=== PATIENT | female | born 1965 | race Caucasian/White ===

== ENCOUNTER 2020-04-26 18:04 | Emergency (ER) | payer OTHER, SELFPAY ==
--- NOTE | 2020-04-26 18:13 | ED.GENADULT ---
HPI - General Adult General Chief complaint: Eye Problems Stated complaint: bleach in eye Time Seen by Provider: 04/26/20 18:21 Source: patient Mode of arrival: ambulatory Limitations: no limitations History of Present Illness HPI narrative: 54-year-old female patient presents to the [facility] with complaints of left eye irritation after bleach was splashed into her eye while cleaning her pool approximately 30 minutes prior to arrival. Patient states that she did try to irrigate it at home as well as put a cold rag over it. Patient states that she does have pain to the eye, blurred vision, sensitivity to light and feels like is that she is having trouble keeping her eye open. Related Data Home Medications Medication Instructions Recorded Confirmed levothyroxine [Euthyrox] 125 mcg PO DAILY 04/26/20 04/26/20 Allergies Allergy/AdvReac Type Severity Reaction Status Date / Time amoxicillin Allergy Intermediate HIVES Verified 04/26/20 18:12 Review of Systems Review of Systems: Narrative: CONSTITUTIONAL: Denies fever, chills, or sweats. EYES: Denies visual changes, redness, or discharge. Positive left eye irritation after chemical burn to the eye ENT: Denies rhinorrhea, congestion, sore throat, or otalgia. CARDIOVASCULAR: Denies chest pain, palpitations, or edema. RESPIRATORY: Denies cough or dyspnea. GASTROINTESTINAL: Denies abdominal pain, nausea, vomiting, or diarrhea. GENITOURINARY: Denies dysuria or hematuria. SKIN: Denies rash or itching. MUSCULOSKELETAL: Denies back pain, joint pain, or myalgia. NEUROLOGIC: Denies headache, numbness, or weakness. PSYCHIATRIC: Denies anxiety or depression. PMFSH Comments At the time of my signature I agree with nursing past medical history, surgical, social, and family history. There is no relevant family history pertinent to the presenting complaint. Exam Narrative: Exam Narrative: GENERAL: Well-appearing, well-nourished, and in no acute distress. HEAD: Normocephalic, atraumatic. EYES: PERRLA and EOM intact without limitation or complaint of pain, no periorbital soft tissue swelling ,no erythema, warmth or tenderness noted, no obvious deformity. No crusting or swelling. tearing noted to the left eye.positive photophobia. No nystagmus No FB or lesion on lid eversion. Corneas grossly clear, no obvious FB or hyphens/hypopyon. injection to sclera. Conjunctivitis noted to the left eye. Lids and lashes clear. pH was checked prior to irrigation and was 6.5. ENT: Nares clear, no rhinorrhea or epistaxis. Mucous membranes moist. NECK: Supple. No lymphadenopathy CHEST: Clear to auscultation. No respiratory distress. HEART: Regular rate and rhythm. No murmur heard. Normal peripheral pulses. ABDOMEN: Soft, nontender, nondistended, normal active bowel sounds. EXTREMITIES: Normal range of motion. No edema. SKIN: Warm, dry, no rash. NEURO: No focal deficits. Alert and oriented x3. Course Reevaluation(s) Reevaluation #1: Discussed with patient that we were able to get the pH up to 7.0 with irrigation. Discussed with her I am going to send her home with some more sterile water and I want her to continue to irrigate that left eye. Discussed with her that if her symptoms continue to worsen including worsening vision changes, increase in pain or any other concerning symptoms I would advise her to go to the ER right away. Discussed with her that if she is able to maintain the irrigation okay and her symptoms start to improve I still like her to follow-up with the eye doctor in the next day or 2. Patient verbalized understanding of this denies any other questions or concerns at this time. Date: 04/26/20 Time: 18:57 Vital Signs Vital signs: Vital Signs Temperature 37.4 C 04/26/20 18:20 Pulse Rate 69 04/26/20 18:20 Respiratory Rate 18 04/26/20 18:20 Blood Pressure 177/96 H 04/26/20 18:20 Pulse Oximetry 100 04/26/20 18:20 Temperature 37.4 C 04/26/20 18:20 Pulse Rate 69 04/26/20
[2020-04-26 18:20] VITALS: BP 177/96; PULSE 69; RESP 18; TEMP 37.4; O2SAT 100
== END 2020-04-26 19:00 | disposition home or self-care (01) ==
PROVIDERS: Emergency Provider Nurse Practitioner Family; PCP Internal Medicine
DX: T26.62XA Corrosion of cornea and conjunctival sac, left eye, initial encounter (principal); T54.91XA Toxic effect of unspecified corrosive substance, accidental (unintentional), initial encounter
CPT/HCPCS: 99202; G0463

== ENCOUNTER 2023-02-04 14:40 | Outpatient (CLI) | payer OTHER, SELFPAY ==
[2023-02-04 19:22] LABS: Basophils Absolute Auto 0.1 K/mm3 (0.0-0.1); Basophils Percent Auto 1.1 % (0.2-1.2); Eosinophils Absolute Auto 0.2 K/mm3 (0-0.3); Eosinophils Percent Auto 1.7 % (0-4.4); Hematocrit 45.5 % (37.0-47.0); Hemoglobin 14.7 g/dL (12.0-15.0); Immature Granulocyte Absolute 0.04 K/mm3 (0.00-0.031); Immature Granulocyte Percent A 0.4 % (0-0.5); Lymphocytes Percent Auto 22.1 % (18.3-44.2); Mean Corpuscular HGB Conc 32.3 g/dl (32-36); Mean Corpuscular Hemoglobin 34.4 pg (26-34); Mean Corpuscular Volume 106.6 fl (80-100); Mean Platelet Volume 9.9 fl (7.4-10.4); Monocytes Absolute Auto 0.6 K/mm3 (0.1-0.6); Monocytes Percent Auto 5.9 % (2.6-8.5); Neutrophils Absolute Auto 7.2 K/mm3 (1.3-6.7); Neutrophils Percent Auto 68.8 % (45.5-73.1); Platelet Count Result 377 k/mm3 (150-375); Red Blood Count 4.27 M/mm3 (4.2-5.4); Red Cell Distribution Width 13.3 % (11.5-14.5); White Blood Count 10.4 K/mm3 (4.5-10.0)
[2023-02-04 20:26] LABS: LDL Cholesterol Direct 94 mg/dL
[2023-02-04 20:37] LABS: Alanine Aminotransferase 22 U/L (6-35); Albumin Level 4.9 g/dL (3.5-5.1); Alkaline Phosphatase 70 U/L (38-126); Anion Gap 6 mmol/L (8-16); Aspartate Amino Transferase 34 U/L (14-36); Bilirubin,Total 0.8 mg/dL (0.2-1.3); Blood Urea Nitrogen 11 mg/dL (7-17); Calcium 9.8 mg/dL (8.4-10.2); Carbon Dioxide 31 mmol/L (22-30); Chloride 100 mmol/L (98-107); Cholesterol 260 mg/dL (0-200); Estimated Glomerular Filt Rate > 60; Glucose 101 mg/dL (65-110); Potassium 4.2 mmol/L (3.4-5.0); Sodium 137 mmol/L (137-145); Triglycerides 58 mg/dL (<150)
[2023-02-04 20:44] LABS: Thyroid Stimulating Hormone 0.258 uIU/mL (0.465-4.680)
[2023-02-04 21:35] LABS: HDL Direct 150 mg/dL
== END 2023-02-04 14:41 | disposition home or self-care (01) ==
LOC: ANHBWCLAB 14:40
PROVIDERS: PCP Family Medicine; Visit Provider Family Medicine
DX: Z00.00 Encounter for general adult medical examination without abnormal findings (principal); E03.9 Hypothyroidism, unspecified
CPT/HCPCS: 36415; 80053; 80061; 84443; 85025

== ENCOUNTER 2023-06-19 14:00 | Outpatient (CLI) | payer OTHER, SELFPAY ==
--- NOTE | ~2023-06-19 | DEXA_ITS ---
Bone Density Report Name: HARDEEP BERGER Age: 57 Sex: Female Ethnicity: White Date of : 1965 Indication: postmenopausal; screening for osteoporosis; height loss; Referring Provider: UNKNOWN, UNKNOWN Study: Bone densitometry was performed. Exam Date: June 19, 2023 Accession number: [id number] Bone Density: Region BMD T-score Z-score Classification AP Spine(L1-L4) 1.013 -0.3 0.9 Normal Femoral Neck (Left) 0.616 -2.1 -0.9 Osteopenia Total Hip (Left) 0.807 -1.1 -0.3 Osteopenia Femoral Neck (Right) 0.657 -1.7 -0.6 Osteopenia Total Hip (Right) 0.799 -1.2 -0.4 Osteopenia Femoral Neck Mean 0.636 -1.9 -0.7 Osteopenia Total Hip Mean 0.803 -1.1 -0.3 Osteopenia World Health Organization criteria for BMD impression classify patients as: Normal (T-score at or above -1.0), Osteopenia (T-score between -1.0 and -2.5), or Osteoporosis (T-score at or below -2.5). 10-year Fracture Risk(1): Major Osteoporotic Fracture 8.9% Hip Fracture 1.9% Reported Risk Factors: [place] (), Neck BMD=0.616, BMI=23.8, smoking (1) FRAX(R) Version 3.08. Fracture probability calculated for an untreated patient. Fracture probability may be lower if the patient has received treatment. Clinical Information Provided by Patient: Smokes Patient maximum height was 66 Menopause Age: 42 No regular weight bearing exercise Drinks caffeinated beverages Onset of menses at age 14 Number of children 1 Impression: The patient has low bone mass, based on the Left Femoral Neck T-score. The patient has risk factors, including: smoking. Discussion: BONE DENSITY IS LOW AT ONE OR MORE SKELETAL SITES. This patient's lowest T-score is low at one or more skeletal sites. It meets the World Health Organization's (WHO) criteria for ?low bone mass? (T-score between -1.0 and -2.5). The patient's 10-year risk of fracture as calculated by FRAX is less than the threshold where pharmacological therapy is recommended by the National Osteoporosis Foundation (NOF). However, all treatment decisions require clinical judgment and consideration of individual patient factors, including patient preferences, comorbidities, previous drug use, risk factors not captured in the FRAX model (e.g., frailty, falls, vitamin D deficiency, increased bone turnover, interval significant decline in bone density) and possible under or overestimation of fracture risk by FRAX. The patient should follow a healthful lifestyle (good nutrition with adequate calcium and vitamin D, and appropriate weight-bearing exercise). Follow-Up: Consider repeating this study in 2 to 3 years to reassess this patient's status, or sooner if there is some new clinical indication. Reported by: Dr. Mike Riddle on 06/19/2023 2:35:00 PM. Reviewed, dictated and finalized at location A.
--- NOTE | ~2023-06-19 | MM_ITS ---
EXAMINATION: MM screening solo BI w samantha HISTORY: Screening mammogram TECHNIQUE: Craniocaudal and mediolateral oblique 3-D tomosynthesis images were obtained and synthetic 2-D images were generated. CAD analysis was submitted and interpreted. COMPARISON: No prior mammogram is available for comparison at this institution. BREAST PARENCHYMAL COMPOSITION: The breasts are heterogeneously dense, which may obscure small masses . FINDINGS: RIGHT BREAST: Calcifications are present in the upper outer quadrant of the right breast. No suspicio us mass or architectural distortion are seen.. LEFT BREAST: There is a mass in the anterior third of the slightly upper inner breast. IMPRESSION: 1. Bilateral breast findings as above which may represent the patient's baseline however no compariso n is currently available. 2. Comparison with prior mammograms is necessary. BI-RADS Category 0: Incomplete: Needs comparison with prior mammograms. Reviewed, dictated and finalized at location A. IMPRESSION: 1. Bilateral breast findings as above which may represent the patient's baselin e however no comparison is currently available. 2. Comparison with prior mammograms is necessary. BI-RADS Category 0: Incomplete: Needs comparison with prior mammograms.
== END 2023-06-19 14:01 | disposition home or self-care (01) ==
LOC: CHSIMG 14:04
PROVIDERS: PCP Family Medicine
DX: Z12.31 Encounter for screening mammogram for malignant neoplasm of breast (principal); Z78.0 Asymptomatic menopausal state; M85.89 Other specified disorders of bone density and structure, multiple sites; R92.8 Other abnormal and inconclusive findings on diagnostic imaging of breast
CPT/HCPCS: 77063; 77067; 77080

== ENCOUNTER 2023-07-16 08:48 | Outpatient (CLI) | payer OTHER, SELFPAY ==
--- NOTE | ~2023-07-16 | MMUS_ITS ---
EXAMINATION: MM diagnostic solo BI w samantha, US breast BI complete HISTORY: Follow-up calcifications and left breast mass TECHNIQUE: Additional 3-D tomosynthesis images of the breasts were performed and synthetic 2-D images were generated. CAD analysis was submitted and interpreted. High resolution bilateral complete breas t ultrasound was performed. COMPARISON: Comparison to multiple prior studies sequentially, with oldest reviewed study dated 10/24. BREAST PARENCHYMAL COMPOSITION: The breasts are heterogeneously dense, which may obscure small masses FINDINGS: MAMMOGRAPHIC FINDINGS: Punctate scattered right breast calcifications are most likely benign, although slightly increased co mpared with prior studies. No suspicious masses or architectural distortion in the right breast. Ther e is a subareolar mass of the left breast. Left breast calcifications are stable. ULTRASOUND: Complete bilateral US of all 4 quadrants of the breasts and retroareolar region was reviewed. Right breast: Normal heterogeneous echotexture without focal solid or cystic mass. Left breast: There are multiple cysts of the left breast, largest near the nipple corresponding to th e mammographic abnormality being a cyst with internal septation measuring 1.8 cm maximum dimension, b enign. There are additional cysts of the right breast at 12:00, 3 cm from the nipple measuring 4 mm a nd 5:00, 5 cm from the nipple measuring 10 mm. IMPRESSION: 1. Probable benign right breast calcifications. Benign findings of the left breast. 2. Recommend 6 month follow-up diagnostic right mammogram BI-RADS category 3, probably benign findings. Reviewed, dictated and finalized at location L. IMPRESSION: 1. Probable benign right breast calcifications. Benign findings of the left manuel ast. 2. Recommend 6 month follow-up diagnostic right mammogram BI-RADS category 3, probably benign findings.
== END 2023-07-16 08:49 | disposition home or self-care (01) ==
PROVIDERS: PCP Family Medicine
DX: R92.8 Other abnormal and inconclusive findings on diagnostic imaging of breast (principal)
CPT/HCPCS: 76641; 77062; 77066; G0279

== ENCOUNTER 2023-08-11 14:36 | Outpatient (CLI) | payer OTHER, SELFPAY ==
[2023-08-11 19:15] LABS: Hematocrit 45.1 % (37.0-47.0); Hemoglobin 14.3 g/dL (12.0-15.0); Mean Corpuscular HGB Conc 31.7 g/dl (32-36); Mean Corpuscular Hemoglobin 34.2 pg (26-34); Mean Corpuscular Volume 107.9 fl (80-100); Mean Platelet Volume 10.4 fl (7.4-10.4); Platelet Count Result 342 k/mm3 (150-375); Red Blood Count 4.18 M/mm3 (4.2-5.4); Red Cell Distribution Width 12.9 % (11.5-14.5); White Blood Count 10.4 K/mm3 (4.5-10.0)
[2023-08-11 19:37] LABS: LDL Cholesterol Direct 87 mg/dL
[2023-08-11 19:45] LABS: Alanine Aminotransferase 18 U/L (6-35); Albumin Level 4.4 g/dL (3.5-5.1); Alkaline Phosphatase 65 U/L (38-126); Anion Gap 8 mmol/L (8-16); Aspartate Amino Transferase 45 U/L (14-36); Bilirubin,Total 0.7 mg/dL (0.2-1.3); Blood Urea Nitrogen 12 mg/dL (7-17); Calcium 9.3 mg/dL (8.4-10.2); Carbon Dioxide 28 mmol/L (22-30); Chloride 103 mmol/L (98-107); Cholesterol 245 mg/dL (0-200); Estimated Glomerular Filt Rate > 60; Glucose 95 mg/dL (65-110); Potassium 4.4 mmol/L (3.4-5.0); Sodium 139 mmol/L (137-145); Triglycerides 51 mg/dL (<150)
[2023-08-11 21:14] LABS: HDL Direct 135 mg/dL
== END 2023-08-11 14:37 | disposition home or self-care (01) ==
PROVIDERS: PCP Nurse Practitioner Adult Health; Visit Provider Nurse Practitioner Adult Health
DX: E03.9 Hypothyroidism, unspecified (principal); E78.00 Pure hypercholesterolemia, unspecified; Z13.9 Encounter for screening, unspecified
CPT/HCPCS: 36415; 80053; 80061; 84443; 85027

== ENCOUNTER 2024-02-09 14:02 | Outpatient (CLI) | payer OTHER, SELFPAY ==
[2024-02-09 18:16] LABS: Hematocrit 47.2 % (37.0-47.0); Hemoglobin 15.4 g/dL (12.0-15.0); Mean Corpuscular HGB Conc 32.6 g/dl (32-36); Mean Corpuscular Volume 104.2 fl (80-100); Mean Platelet Volume 10.4 fl (7.4-10.4); Platelet Count Result 371 k/mm3 (150-375); Red Blood Count 4.53 M/mm3 (4.2-5.4); Red Cell Distribution Width 12.6 % (11.5-14.5); White Blood Count 10.2 K/mm3 (4.5-10.0)
== END 2024-02-09 14:03 | disposition home or self-care (01) ==
LOC: ANHBWCLAB 14:04
PROVIDERS: PCP Nurse Practitioner Adult Health; Visit Provider Nurse Practitioner Adult Health
DX: Z13.9 Encounter for screening, unspecified (principal)
CPT/HCPCS: 36415; 80053; 80061; 84443; 85027

== ENCOUNTER 2024-02-10 07:33 | Emergency (ER) | payer OTHER, SELFPAY ==
[2024-02-10 07:36] VITALS: BP 175/92; PULSE 87; RESP 19; TEMP 36.2; O2SAT 100
--- NOTE | 2024-02-10 07:40 | ED.RECABL ---
HPI - Recheck/Abnormal Lab/Rx General Chief Complaint: Recheck/Abnormal Lab/Rx Stated Complaint: abnormal labs Time Seen by Provider: 02/10/24 07:39 Source: patient Mode of arrival: ambulatory Limitations: no limitations History of Present Illness HPI narrative: 58-year-old female, smoker alcohol use, hypothyroidism, Dyslipidemia went to her primary care physician yesterday for routine blood work. Her blood work revealed a potassium of 7.8 following which was directed to come to the ER. The patient is asymptomatic. She denies any chest pain or shortness of breath. No history of renal dysfunction. The patient takes estrogen progesterone and thyroid replacement. MD complaint: abnormal lab Symptoms since prior visit: no new symptoms Associated symptoms: none Related Data Home Medications Medication Instructions Recorded Confirmed Progesterone BYMOUTH 02/09/24 02/09/24 estrogen BYMOUTH 02/09/24 02/09/24 Allergies Allergy/AdvReac Type Severity Reaction Status Date / Time amoxicillin Allergy Intermediate HIVES Verified 02/09/24 13:40 Review of Systems Review of Systems: All systems reviewed & are unremarkable except as noted in HPI and below PMFSH Family History Family History Father Heart disease Hypertension Mother Disorder of thyroid Sibling Cerebrovascular accident Grandparent Colon polyp Social History Social History Smoking status: Current every day smoker Alcohol intake: current Drinks per week: 12 Alcohol use details: Wine Substance use: current Substance use type: does not use Lack of Transportation: No Lack of Food: Never True Current Housing: I Do Not Have Housing Concerned About Future Housing: No Difficulty Paying Gas/Electric Bills: No Difficulty Paying for Meds: No Currently Unemployed: No Education: Trade/Vocational Certificate Difficulty w/ Childcare or Family Care: No Living arrangements: alone Gender identity (if verbalized by the patient): Female Agree to blood products: Yes Exam Narrative: blood pressure is 175/92. Const: General: healthy appearing and no acute distress Orientation/consciousness: patient oriented x3 Limitations: no limitations HENMT: Head: normal to inspection Ears: external ears normal Face/Nose/Sinus: Normal external nose present Face and sinus: normal facial exam Mouth: Yes Normal oral and palatal mucosa present Throat: posterior oropharynx normal Eyes: Conjunctivae: conjunctivae normal Pupils: Equal, round and reactive pupils present EOM: EOMs intact bilaterally Direct Ophthalmoscopy: no photophobia Neck: Neck: normal visual inspection, no lymphadenopathy and no meningeal signs Chest: Chest palpation & inspection: normal inspection of the chest Resp: Effort & Inspection: normal respiratory effort Auscultation: clear to auscultation bilaterally Cardio: Rate: regular rate Rhythm: regular rhythm GI: GI Palp: Yes Soft to palpation : General: Yes no CVA tenderness Back/Spine/Pelvis: Back: no CVA tenderness Skin: General skin exam: normal color Rashes: no rashes Wounds: no wounds Neuro: General: patient oriented x3, moves all extremities, no meningeal signs, no focal motor deficits and CN's II-XI intact bilaterally Cranial nerves: Yes Nystagmus not present Speech: normal speech Extrem: General: normal to inspection, no clubbing, cyanosis or edema and no pedal edema Psych: Mental Status: mental status grossly normal Affect: normal affect Attitude: cooperative Course Course Emergency Course: Blood work revealed hyperkalemia. Patient has normal BUN / creatinine. Will repeat blood work. Patient is asymptomatic. Repeat blood work revealed a normal potassium and magnesium. Vital Signs Vital signs: Vital Signs Temperature 36.2 C L 02/10/24 07:36 Pulse Rate 87 0
[2024-02-10 07:58] LABS: Basophils Absolute Auto 0.12 K/mm3 (0.00-0.10); Basophils Percent Auto 1.6 % (0.0-1.0); Eosinophils Absolute Auto 0.43 K/mm3 (0.02-0.50); Eosinophils Percent Auto 5.7 % (1.0-6.0); Hematocrit 48.3 % (35.0-49.0); Immature Granulocyte Absolute 0.05 K/mm3 (0.00-0.00); Immature Granulocyte Percent A 0.7 % (0.0-0.0); Lymphocytes Absolute Auto 2.07 K/mm3 (1.10-4.50); Lymphocytes Percent Auto 27.5 % (18.0-42.0); Mean Corpuscular HGB Conc 33.1 g/dL (32-36); Mean Corpuscular Volume 102.8 fL (78.0-102.0); Mean Platelet Volume 9.3 fl (9.2-11.8); Monocytes Absolute Auto 0.46 K/mm3 (0.10-0.90); Monocytes Percent Auto 6.1 % (2.0-11.0); Neutrophils Percent Auto 58.4 % (50.0-70.0); Platelet Count Result 350 K/mm3 (150-420); Red Cell Distribution Width 12.4 % (11.6-14.4); White Blood Count 7.5 K/mm3 (4.8-10.8)
[2024-02-10 08:13] LABS: Anion Gap 9 mmol/L (8-16); Blood Urea Nitrogen 14 mg/dL (7-18); Calcium 8.8 mg/dL (8.5-10.1); Carbon Dioxide 30 mmol/L (21-32); Chloride 105 mmol/L (98-108); Estimated CRCL calculation 71 ml/min; Estimated Glomerular Filt Rate > 60; Glucose 106 mg/dL (70-99); Osmolality Calculated 298 mOsm/kg (285-295); Potassium 4.3 mmol/L (3.5-5.1); Sodium 144 mmol/L (136-145)
[2024-02-10 14:05] LABS: Cholesterol 260 mg/dL (0-200); HDL Direct 114 mg/dL (40-60); LDL Cholesterol Calculated 132 mg/dL (<130); Thyroid Stimulating Hormone 12.65 uIU/mL (0.36-3.74); Triglycerides 69 mg/dL (0-150)
== END 2024-02-10 08:27 | disposition home or self-care (01) ==
PROVIDERS: Emergency Provider Internal Medicine Critical Care Medicine; PCP Family Medicine
DX: E87.5 Hyperkalemia (principal); E03.9 Hypothyroidism, unspecified; E78.5 Hyperlipidemia, unspecified; F10.90 Alcohol use, unspecified, uncomplicated; F17.210 Nicotine dependence, cigarettes, uncomplicated
CPT/HCPCS: 36415; 80048; 80061; 83735; 84443; 85025; 99283

== ENCOUNTER 2024-07-12 13:02 | Outpatient (CLI) | payer OTHER, SELFPAY | END 2024-07-12 13:03 | disposition home or self-care (01) | LOC: CHSIMG 13:03 | PROVIDERS: PCP Nurse Practitioner Adult Health | DX: R92.8 Other abnormal and inconclusive findings on diagnostic imaging of breast (principal) | CPT/HCPCS: 99199 ==

== ENCOUNTER 2024-07-15 08:56 | Outpatient (CLI) | payer OTHER, SELFPAY ==
--- NOTE | ~2024-07-15 | MM_ITS ---
EXAMINATION: MM diagnostic solo BI w samantha HISTORY: Follow-up breast calcifications TECHNIQUE: Additional 3-D tomosynthesis images of the breasts were performed and synthetic 2-D images were generated. CAD analysis was submitted and interpreted. COMPARISON: Comparison to multiple prior studies sequentially, with oldest reviewed study dated 07/02. BREAST PARENCHYMAL COMPOSITION: Dense: The breasts are heterogeneously dense, which may obscure small masses FINDINGS: The left breast is stable without evidence for malignancy. There are multiple clusters of r ight breast calcifications most of which are stable. There is a developing cluster of indeterminate c alcifications in the upper outer quadrant of the right breast, middle third. IMPRESSION: 1. Developing cluster of indeterminate right breast calcifications upper outer quadrant. 2. Stereotactic right breast biopsy recommended. BI-RADS category 4, suspicious findings. Reviewed, dictated and finalized at location B.
== END 2024-07-15 08:57 | disposition home or self-care (01) ==
LOC: CHSIMG 08:57
PROVIDERS: PCP Nurse Practitioner Adult Health; Visit Provider Nurse Practitioner Adult Health
DX: R92.8 Other abnormal and inconclusive findings on diagnostic imaging of breast (principal)
CPT/HCPCS: 77062; 77066; G0279

== ENCOUNTER 2024-08-11 14:29 | Outpatient (CLI) | payer OTHER, SELFPAY ==
[2024-08-11 18:41] LABS: Basophils Absolute Auto 0.1 K/mm3 (0.0-0.1); Basophils Percent Auto 1.5 % (0.2-1.2); Eosinophils Absolute Auto 0.3 K/mm3 (0-0.3); Eosinophils Percent Auto 2.9 % (0-4.4); Hematocrit 47.8 % (37.0-47.0); Hemoglobin 15.6 g/dL (12.0-15.0); Immature Granulocyte Absolute 0.05 K/mm3 (0.00-0.031); Immature Granulocyte Percent A 0.5 % (0-0.5); Lymphocytes Absolute Auto 2.04 K/mm3 (0.9-3.2); Lymphocytes Percent Auto 22.2 % (18.3-44.2); Mean Corpuscular HGB Conc 32.6 g/dl (32-36); Mean Corpuscular Hemoglobin 34.1 pg (26-34); Mean Corpuscular Volume 104.6 fl (80-100); Monocytes Absolute Auto 0.6 K/mm3 (0.1-0.6); Monocytes Percent Auto 6.2 % (2.6-8.5); Neutrophils Absolute Auto 6.1 K/mm3 (1.3-6.7); Neutrophils Percent Auto 66.7 % (45.5-73.1); Platelet Count Result 380 k/mm3 (150-375); Red Blood Count 4.57 M/mm3 (4.2-5.4); Red Cell Distribution Width 12.9 % (11.5-14.5); White Blood Count 9.2 K/mm3 (4.5-10.0)
[2024-08-11 21:31] LABS: Hemoglobin A1C 5.4 % (<5.7)
[2024-08-11 23:14] LABS: LDL Cholesterol Direct 117 mg/dL
[2024-08-11 23:16] LABS: Alanine Aminotransferase 17 U/L (6-35); Albumin Level 4.7 g/dL (3.5-5.1); Alkaline Phosphatase 69 U/L (38-126); Anion Gap 11 mmol/L (4-12); Aspartate Amino Transferase 46 U/L (14-36); Bilirubin,Total 0.9 mg/dL (0.2-1.3); Blood Urea Nitrogen 14 mg/dL (7-17); Calcium 9.4 mg/dL (8.4-10.2); Carbon Dioxide 26 mmol/L (22-30); Chloride 102 mmol/L (98-107); Cholesterol 265 mg/dL (0-200); Estimated Glomerular Filt Rate > 60; Glucose 76 mg/dL (65-110); Potassium 4.2 mmol/L (3.4-5.0); Sodium 139 mmol/L (137-145); Triglycerides 53 mg/dL (<150)
[2024-08-11 23:18] LABS: HDL Direct 134 mg/dL
== END 2024-08-11 14:30 | disposition home or self-care (01) ==
LOC: ANHBWCLAB 14:32
PROVIDERS: PCP Nurse Practitioner Adult Health; Visit Provider Nurse Practitioner Adult Health
DX: E78.5 Hyperlipidemia, unspecified (principal)
CPT/HCPCS: 36415; 80053; 80061; 83036; 84443; 85025

== ENCOUNTER 2024-09-01 08:45 | Outpatient (CLI) | payer OTHER, SELFPAY ==
--- NOTE | ~2024-09-01 | MM_ITS ---
MM stereotactic bx RT, MM stereotactic specimen RT, MM post biopsy invasive RT EXAMINATION: MM stereotactic bx RT, MM stereotactic specimen RT, MM post biopsy invasive RT INDICATION: Right breast calcifications in the right breast. Stereotactic core biopsy is requested e valuate for malignancy. BREAST PARENCHYMAL COMPOSITION: Dense: The breasts are heterogeneously dense, which may obscure small masses TECHNIQUE AND FINDINGS: The risks and potential benefits of the procedure were discussed with the patient and written informe d consent was obtained. The patient was placed in the prone position clustered at the table with the right breast in craniocaudal compression, and the area of interest was localized and targeted utiliz ing digital imaging with stereotaxis. After sterile preparation of the skin, 1% lidocaine was utilized for local anesthesia at the skin pun cture site and 1% lidocaine with epinephrine was utilized for deeper local anesthesia/is about the bi opsy site. A 9G [employer] vacuum assisted biopsy needle was advanced to the level of the calcification o f interest from a cephalad approach utilizing stereotactic guidance and a total of 6. tissue core bio psies were obtained. A specimen radiograph demonstrates that the calcifications of interest are included within the tissue cores. A tissue marker clip was then placed at the biopsy site. The needle was removed and hemosta sis was achieved. The patient tolerated the procedure well and there is no evidence of significant i mmediate complication. The patient was given verbal as well as written postprocedural instructions p rior to discharge from the department. Tissue cores were submitted to surgical pathology for histolo gic analysis. A 2-view right unilateral digital mammogram was obtained post procedure and this demonstrates that th e tissue marker clip is in expected position.] IMPRESSION: 1. Successful stereotactic biopsy of calcifications in the upper outer quadrant of the right breast with post procedure mammogram for marker placement. Please refer to pathology report for histologic analysis. Reviewed, dictated and finalized at location B. IMPRESSION: 1. Successful stereotactic biopsy of calcifications in the upper outer quadran t of the right breast with post procedure mammogram for marker placement. Plea se refer to pathology report for histologic analysis. IMPRESSION: 1. Successful stereotactic biopsy of calcifications in the upper outer quadran t of the right breast with post procedure mammogram for marker placement. Plea se refer to pathology report for histologic analysis.
== END 2024-09-01 08:46 | disposition home or self-care (01) ==
PROVIDERS: PCP Nurse Practitioner Adult Health; Visit Provider Surgery
DX: R92.1 Mammographic calcification found on diagnostic imaging of breast (principal); R92.8 Other abnormal and inconclusive findings on diagnostic imaging of breast
CPT/HCPCS: 19081; 88305

== ENCOUNTER 2025-02-09 08:24 | Outpatient (CLI) | payer OTHER, SELFPAY ==
--- OUTSIDE RECORDS SUMMARY | 2025-02-09 08:29 | XMS_ITS | Clinical Summary ---
Author Organization [facility] [employer] Address [address] [place] [address] Care Team Providers Care Scientific Technical Writer Name Role Phone Unavailable Primary Care Provider Unavailabl e Source Comments [facility],non-owned Affiliates and Associated Physician Practices is amultiple site organization consisting of ambulatory clinics and hospital sitesin [place], [place], [place] and [place]. This disclosure is being madepursuant to the Care Everywhere program and may not contain all information available regarding this patient. Last updated 18.[facility] Social History Tobacco Use Types Packs/Day Years Used Date Smoking Tobacco: Never Assessed Sex and Gender Information Value Date Recorded Sex Assigned at Not on file Gender Identity Not on file Sexual Orientation Not on file Plan of Treatment Health Maintenance Due Date Last Done Comments COLOGUARD (AGES 45-75) - COL ON CA SCREENING 1965 COLON MONITORING 1965 COLONOSCOPY - COLON CA SCREENING 1965 CT COLONOGRAPHY - COLON CA SCREENING 1965 Colorectal Cancer Screening 1965 FIT - COLON CA SCREENING 1965 FLEX SIG - COLON CA SCREENING 1965 LIPID TESTING 1965 MAMMOGRAM 1965 PAP SMEAR 1965 HIV SCREENING 1980 HEPATITIS C SCREENING 12/05/1983 DTAP/TDAP/TD VACCINES (1 - Tdap) 1984 HEPATITIS B VACCINE (1 of 3 - 19+ 3-dose series) 1984 PNEUMOCOCCAL VACCINE 50+ (1 of 1 - PCV) 2015 ZOSTER VACCINE (1 of 2) 2015 COVID-19 VACCINE ( - 2023-2 5 season) 2024 INFLUENZA VACCINE (#1) 2024 DEPRESSION SCREENING 11/23/2024 HIB VACCINE Aged Out No longer eligi ble based on patient's age to complete this topic HPV VACCINE Aged Out No longer eligi ble based on patient's age to complete this topic MENINGOCOCCAL (Group B) VACC INE SHARED DECISION-MAKING Aged Out No longer eligibl e based on patient's age to complete this topic MENINGOCOCCAL GROUPS A/C/Y/W VACCINE Aged Out No longer eligible b ased on patient's age to complete this topic
--- OUTSIDE RECORDS SUMMARY | 2025-02-09 08:29 | XMS_ITS | Clinical Summary ---
Author Organization [facility] Address [address] [place] [address] Phone Care Team Providers Care Aquatic Physiotherapist Name Role Phone Rashid Medina MD Primary Care Provider [phone] Allergies Active Allergy Reactions Criticality Noted Date Comments Amoxicillin Rash 01/21/2019 Medications HYDROcodone-she taminophen (NORCO) 7.5-325 mg Tablet Take 1 Tablet by mouth every 4 hours as needed for moderate pain. Max Daily Amount: 6 Tablets 30 Tablet 01/26/2019 12:42 PM CAR OILER 01/26/2019 Active calcium as carbonate (OS-JASKARAN) 1,250 mg (500 mg elemental) tablet Take 2 Tablets by mouth 3 times daily for two days starting tomorrow 01/27, then Take one tablet by mouth starting on 01/29 three times per day until discontinued. . 30 Tablet 01/26/2019 12:42 PM CAR OILER 01/26/2019 Active calcitRIOL (ROCALTROL) 0.25 mcg capsule Take 1 Capsule (0.25 mcg) by mouth daily for two weeks. Starting 01/26, ending 02/09. 14 Capsule 01/26/2019 12:42 PM CAR OILER 01/26/2019 Active Active Problems Problem Noted Date Diagnosed Date Primary hyperparathyroidism 01/25/2019 Social History Tobacco Use Types Packs/Day Years Used Date Smoking Tobacco: Every Day Cigarettes 0.5 25 Smokeless Tobacco: Never Alcohol Use Standard Drinks/Week Comments Yes 0 (1 standard drink = 0.6 oz pur e alcohol) 5 wine per week Comments No Sex and Gender Information Value Date Recorded Sex Assigned at Not on file Legal Sex Female 11:32 PM CDT Gender Identity Not on file Sexual Orientation Not on file Last Filed Vital Signs Vital Sign Reading Time Taken Comments Blood Pressure 116/71 01/26/2019 9:00 AM CAR OILER Pulse 50 01/26/2019 9:00 AM CAR OILER Temperature 36.6 C (97.8 F) 01/26/2019 9:00 AM CAR OILER Respiratory Rate 16 01/26/2019 9:00 AM CAR OILER Oxygen Saturation 99% 01/26/2019 9:00 AM CAR OILER Inhaled Oxygen Concentration - - Weight 80.1 kg (176 lb 8 oz) 01/26/2019 5:38 AM CAR OILER Height 167.6 cm (5' 6 ) 01/25/2019 6:52 AM CAR OILER Body Mass Index 28.49 01/25/2019 6:52 AM CAR OILER Plan of Treatment Health Maintenance Due Date Last Done Comments PNEUMOCOCCAL VACCINE 0-49 YEARS (1 of 2 - PCV) 972 DTAP/TDAP/TD VACCINES (1 - Tdap) 1984 HEPATITIS B VACCINES (1 of 3 - 19+ 3-dose series) 11/23 PAP SMEAR 1995 BREAST CANCER SCREENING 2005 COLORECTAL SCREENING 2010 Colorectal Cancer Screening 2010 FIT-DNA Q 3 years 2010 FIT/FOBT Q 1 year 2010 Flex Sig/CT Colonography Q 5 years 2010 ZOSTER VACCINE (1 of 2) 2015 INFLUENZA VACCINE (#1) 2024 Insurance [place] [id number] [place], [place] [address]O [employer] Commercial Advance Directives For more information, please contact: [phone] * Full Code (Latest Code Status on File) Date Activated Date Inactivated Comments 01/25/2019 12:54 PM 01/26/2019 2:52 PM Care Teams Aquatic Physiotherapist Relationship Specialty Start Date End Date Rashid Medina MD PCP - General Internal Medicine 11/19/18
[2025-02-09 20:07] LABS: Hematocrit 48.6 % (37.0-47.0); Hemoglobin 15.5 g/dL (12.0-15.0); Mean Corpuscular HGB Conc 31.9 g/dl (32-36); Mean Corpuscular Hemoglobin 33.5 pg (26-34); Mean Platelet Volume 9.6 fl (7.4-10.4); Platelet Count Result 406 k/mm3 (150-375); Red Blood Count 4.63 M/mm3 (4.2-5.4); White Blood Count 8.6 K/mm3 (4.5-10.0)
[2025-02-09 20:31] LABS: LDL Cholesterol Direct 112 mg/dL
[2025-02-09 20:48] LABS: Alanine Aminotransferase 19 U/L (6-35); Albumin Level 4.7 g/dL (3.5-5.1); Alkaline Phosphatase 82 U/L (38-126); Anion Gap 11 mmol/L (4-12); Aspartate Amino Transferase 53 U/L (14-36); Bilirubin,Total 0.3 mg/dL (0.2-1.3); Blood Urea Nitrogen 14 mg/dL (7-17); Calcium 9.8 mg/dL (8.4-10.2); Carbon Dioxide 26 mmol/L (22-30); Chloride 102 mmol/L (98-107); Cholesterol 282 mg/dL (0-200); Estimated Glomerular Filt Rate > 60; Glucose 102 mg/dL (65-110); Potassium 4.7 mmol/L (3.4-5.0); Sodium 139 mmol/L (137-145); Triglycerides 116 mg/dL (<150)
[2025-02-09 20:59] LABS: HDL Direct 127 mg/dL
== END 2025-02-09 08:25 | disposition home or self-care (01) ==
LOC: ANHBWCLAB 08:25
PROVIDERS: PCP Nurse Practitioner Adult Health; Visit Provider Nurse Practitioner Adult Health
DX: Z13.9 Encounter for screening, unspecified (principal)
CPT/HCPCS: 36415; 80053; 80061; 84443; 85027

== ENCOUNTER 2025-04-24 08:52 | Outpatient (CLI) | payer OTHER, SELFPAY ==
--- NOTE | ~2025-04-24 | MM_ITS ---
EXAMINATION: MM diagnostic solo RT w samantha HISTORY: Recent benign right breast biopsy. TECHNIQUE: Additional 3-D tomosynthesis images of the right breast were performed and synthetic 2-D i mages were generated. CAD analysis was submitted and interpreted. COMPARISON: Comparison to multiple prior studies sequentially, with oldest reviewed study dated 06/19. BREAST PARENCHYMAL COMPOSITION: Dense: The breasts are extremely dense, which lowers the sensitivity of mammography. FINDINGS: There is a small mass in the upper outer quadrant of the right breast, containing a tissue marker from previous benign biopsy. There are benign-appearing right breast masses. No new masses, ca lcifications or architectural distortion are identified. IMPRESSION: 1. No evidence for malignancy in the right breast. 2. Routine yearly screening mammogram and regular clinical breast examination are recommended. BI-RADS Category 2: Benign finding(s). Reviewed, dictated and finalized at location A. IMPRESSION: 1. No evidence for malignancy in the right breast. 2. Routine yearly screening mammogram and regular clinical breast examination a re recommended. BI-RADS Category 2: Benign finding(s).
--- OUTSIDE RECORDS SUMMARY | 2025-04-24 09:07 | XMS_ITS | Clinical Summary ---
Author Organization [facility] [employer] Address [address] [place] [address] Care Team Providers Care Jig Filler Name Role Phone Unavailable Primary Care Provider Unavailabl e Source Comments [facility],non-owned Affiliates and Associated Physician Practices is amultiple site organization consisting of ambulatory clinics and hospital sitesin [place], [place] and [place]. This disclosure is being madepursuant to the Care Everywhere program and may not contain all information available regarding this patient. Last updated 18.[facility] [employer] Social History Tobacco Use Types Packs/Day Years Used Date Smoking Tobacco: Never Assessed Comments Unknown Sex and Gender Information Value Date Recorded Sex Assigned at Not on file Legal Sex Female 6:19 AM M[employer]WR[employer] Gender Identity Not on file Sexual Orientation [...] VACCINE ( - 2023-2 5 season) 2024 DEPRESSION SCREENING 11/23/2024 INFLUENZA VACCINE (Season Ended) 2025 HIB VACCINE Aged Out No longer eligi [...] on patient's age to complete this topic Insurance [employer], [facility] SELF PAY NO INSURANCE Member Subscriber Plan / Payer (Ef fective for All Dates) Name:Irene Hagan Member ID:Not on file Relation to Subscriber:Not on file Name:RIENE HAGAN Subscriber ID:Not on file (Home) Address: [address] [place], [place] [address] [address] Payer ID:Not on file Group ID:Not on file Type:Self Pay Address: [place], [place]
--- OUTSIDE RECORDS SUMMARY | 2025-04-24 09:07 | XMS_ITS | Continuity of Care Document ---
Author Organization [facility] Robert Applebaum MD Address [address] [place] [address] Phone Care Team Providers Care Information Technology Architect Name Role Phone Rashid Medina MD Unavailable Unavailable Allergies, Adverse Reactions, Alerts Substance Reaction Status Criticality AMOXICILLIN TRIHYDRATE Hives Active No In formation Medications Medication Instructions Dosage Effective Dates (start - stop) Status Comments Synthroid 125 mcg tablet Take 1 tablet by mouth once daily - Active Synthroid 125 mcg tablet Take 1 tablet by mouth once daily - No Longer Active Procedures Procedure Date Pt inelig neg scrn depres GENERAL HEALTH PANEL LIPID PANEL URINALYSIS, REFLEX (UA) ROUTINE VENIPUNCTURE PREVENTATIVE-EST: 40-64 BODY MASS INDEX DOCD SYST BP GE 130 - 139MM HG DIAST BP 80-89 MM HG IMMUN ADMIN (INC PERCUTANEOUS) SINGLE, F IRST INJ FLU VAC NO PRSV 4 LUANN, 0.5mL DOSAGE HEMOGLOBIN A1C HGA1C, GLYCO Pt inelig neg scrn depres GENERAL HEALTH PANEL TRIODOTHYROXINE, FREE (FREE T3: FT3) Jul FREE T4 (FT4) LIPID PANEL ROUTINE VENIPUNCTURE IMMUN ADMIN (INC PERCUTANEOUS) SINGLE, F IRST INJ FLU VAC NO PRSV 4 LUANN, 0.5mL DOSAGE PREVENTATIVE-EST: BODY MASS INDEX DOCD SYST BP GE 130 - 139MM HG DIAST BP 80-89 MM HG THYROID STIMULATION HORMONE(TSH) 2019 ROUTINE VENIPUNCTURE THYROID STIMULATION HORMONE(TSH) 2019 ROUTINE VENIPUNCTURE THYROID STIMULATION HORMONE(TSH) 2018 ROUTINE VENIPUNCTURE Brief Emotional/Behavioral A ssessment, With Scoring/Doct, Per Stndrd Instrument Clin depression screen doc GENERAL HEALTH PANEL LIPID PANEL ROUTINE VENIPUNCTURE PREVENTATIVE-EST: BODY MASS INDEX DOCD SYST BP GE 130 - 139MM HG DIAST BP 80-89 MM HG Advance Directives Directive Yes / No Effective Date File Name Life Support Not Answered N/A N/A Intubation Not Answered N/A N/A Antibiotics Not Answered N/A N/A IV Fluid Support Not Answered N/A N/A Tube Feed Not Answered N/A N/A Other Directive N/A N/A WARNING:The information contained in this section is historical and is provided for information only and does not constitute a legal document or any assurance that the information is still accurate. Please verify the information with the arreola of the legal document before using it for clinical purposes. Encounters Encounter Description Practice Location Reason(s) For Visit Diagnoses Date Provider Providers Copied on Encounter [facility], [address], [place], [place], [address] , tel: [phone] [facility] No Information [address], [place], [place], [address], . [phone] [facility], [address], [place], [place], [address] , tel: [phone] [facility] No Information [address], [place], [place], [address], [place]. tel:[phone] PREVENTATIVE -EST: [address] [facility], [address], [place], [place], [address] , tel: [phone] [facility] physical exam (chief complaint)h ypothyroidi sm (chief complaint) Physical examAcquired hypothyroidismToba tobacco stemmer abuse [address], [place], [place], [address], [place]. tel: [phone] Referring Provider: [address], [place], [address] . tel:[phone] [facility] Robert Applebaum MD, [address], [place], [place], [address] , tel: [phone] [facility] No Information [address], [place], [place], [address], . tel: [phone] [facility] Robert Applebaum MD, [address], [place], [place], [address] , tel: [phone] [facility] Encounter for screening for malignant neoplasm of colon 0 [address]. [address], [place], [place], [address], [place]. tel: [phone] PREVENTATIVE -EST: [address] [facility] Robert Applebaum MD, [address], [place], [place], [address] , tel: [phone] [facility] preventive exam (chief complaint)C hronic Conditions (chief complaint) Annual physical examEncounter for screening for malignant neoplasm of colonHypothyroidis m, unspecifiedTobacco abuse 0 [address], [place], [place], [address], [place]. tel:[phone] Referring Provider: [address], [place], [address] . tel:[phone] [facility], [address], [place], [place], [address] , tel: [phone] [facility] Hypothyroidism, unspecified Feb-1 9-202 0 Adam Mike. [address], [place], [place], [address], [place]. tel:[phone] Referring Provider: Rashid Medina, [address], [place], [address] . tel:[phone] [facility], [address], [place], [place], [address] , [place] tel: [phone] [facility] Hypothyroidism, unspecified 0 [address]. [address], [place], [place], [address], [place]. tel: [phone] [facility], [address], [place], [place], [address] , [place] tel: [phone] [facility] Hypothyroidism, unspecified 0 [address], [place], [place], [address], [place]. tel: [phone] Referring Provider: [address], [place], [address] . tel:[phone] [facility], [address], [place], [place], [address] , [place] tel: [phone] [facility] Hypothyroidism, unspecified [address], [place], [place], [address], [place]. tel: [phone] [facility], [address], [place], [place], [address] , [place] tel: [phone] [facility] Hypothyroidism, unspecified 9 Od[address]. [address], [place], [place], [address], [place]. tel:[phone] Referring Provider: Rashid Medina, [address], [place], [address] . tel:[phone] [facility], [address], [place], [place], [address] , [place] tel: [phone] [facility] Adult hypothyroidism 9 [address], [place], [place], [address], [place]. tel:[phone] PREVENTATIVE -EST: 40-64 [facility], [address], [place], [place], [address] , tel: [phone] [facility] Preventive exam (chief complaint) Annual physical examTobacco abuseFamily hx of colon cancerHot flashes 9 Odette Robertson. [address], [place], [place], [address], [place]. tel:[phone] Referring Provider: [address], [place], [address] . tel:[phone] [facility], [address], [place], [place], [address] , tel: [phone] [facility] No Information [address], [place], [place], [address], [place]. tel:[phone] Referring Provider: Rashid Medina, [address], [place], [address] . tel:[phone] [facility], [address], [place], [place], [address] , [place] tel: [phone] [facility] Hyperparathyroidis m [address], [place], [place], [address], [place]. tel:[phone] [facility], [address], [place], [place], [address] , [place] tel: [phone] [facility] HypercalcemiaHyper parathyroidism 0-201 8 Odette Robertson. [address], [place], [place], [address], [place]. tel:[phone] Referring Provider: [address], [place], [address] . tel:[phone] [facility], [address], [place], [place], [address] , tel: [phone] [facility] Annual physical examTobacco abuseCervical radiculopathySerum calcium elevatedElevated glucose Sep-1 0-201 8 Hesterrafita [address], [place], [place], [address], [place]. tel:[phone] Referring Provider: [address], [place], [address] . tel:[phone] [facility] Robert Applebaum MD, [address], [place], [place], [address] , tel: [phone] [facility] Annual physical examRashTobacco abuseBenign hypertensionScreen ing for breast cancerEncounter for immunization Sep-0 7-201 7 Maximilianterrafita Robertson[address], [place], [place], [address], [place]. tel:[phone] Referring Provider: [address], [place], [address] . tel:[phone] [facility], [address], [place], [place], [address] , tel: [phone] [facility] Elevated glucose Sep-0 7-201 [address], [place], [place], [address], [place]. tel:[phone] Referring Provider: [address], [place], [address] . tel:[phone] [facility] Robert Applebaum MD, [address], [place], [place], [address] , tel: [phone] [facility] Annual physical examEczema, unspecified typeTobacco abuseFamily hx of colon cancerFinger pain, left Sep-0 6-201 6 Hester[address] Ailyn[address], [place], [place], [address], [place]. tel:[phone] Referring Provider: [address], [place], [address] . tel:[phone] [facility] Robert Applebaum MD, [address], [place], [place], [address] , tel: [phone] [facility] Pharyngitis, Acute 201 2 Brooks [address]. [address] [place], [address]. tel: [phone] Referring Provider: Aakash Norman, [address], [place], [address] . tel:[phone] [facility], [address], [place], [place], [address] , tel: [phone] [facility] MEDIAL EPICONDYLITIS 5201 0 Kalee Finn. [address], [place], [place], [address]. tel: [phone] [facility], [address], [place], [place], [address] , [place] tel: [phone] [facility] ACUTE URI NOSTOBACCO USE DISORDER 4200 9 Kalee Finn. [address], [place], [place], [address]. tel: [phone] [facility] Robert Applebaum MD, [address], [place], [place], [address] , [place] tel: [phone] [facility] MYALGIA AND MYOSITIS NOSHIRSUTISM 2-200 9 Kalee Finn. [facility], [place], [place], [address]. tel: [phone] [facility], [address], [place], [place], [address] , tel: [phone] [facility] BENIGN HYPERTENSION 0 7-200 9 Kalee Finn. [address], [place], [place], [address]. tel: [phone] [facility], [address], [place], [place], [address] , [place] tel: [phone] [facility] CERVICALGIA 0 1200 9 Brooks Nichelle. [facility] [place], [address]. tel: [phone] [facility], [address], [place], [place], [address] , tel: [phone] [facility] HYPERPOTASSEMIA 0 1-200 9 Kalee Finn. [address], [place], [place], [address]. tel: [phone] [facility] Robert Applebaum MD, [address], [place], [place], [address] , [place] tel: [phone] [facility] URIN TRACT INFECTION NOS Sep-2 2-200 8 Conversion Doctor. [address], [place], [address], [place]. [facility], [address], [place], [place], [address] , [place] tel: [phone] [facility] MALAISE AND FATIGUE NEC Jan- 2-200 8 Kalee Finn. [address], [place], [place], [address]. tel: [phone] [facility], [address], [place], [place], [address] , [place] tel: [phone] [facility] SPRAIN SHOULDER/ARM NEC 0 2-200 7 Kalee Finn. [address], [place], [place], [address]. tel: [phone] [facility] Robert Applebaum MD, [address], [place], [place], [address] , [place] tel: [phone] [facility] ANXIETY STATE NOSSLEEP DISTURBANCE NOSJOINT PAIN-SHLDER Jun-0 2-200 7 Brooks Nichelle. [address], [place], [place], [address]. tel: [phone] [facility], [address], [place], [place], [address] , [place] tel: [phone] [facility] ABDMNAL PAIN RT UPR QUAD March-0 3-200 6 Kalee Finn. [address], [place], [place], [address]. tel: [phone] [facility] Robert Applebaum MD, [address], [place], [place], [address] , [place] tel: [phone] [facility] No Information Feb-2 7-200 6 Detmer Radha. [address], [place], [place], [address], [place]. tel:[phone] [facility], [address], [place], [place], [address] , [place] tel: [phone] [facility] ABDMNAL PAIN UNSPCF SITE 0-200 0 Kalee Finn. [address], [place], [place], [address]. tel:[phone] Family History Family Member Type Diagnosis Age At Onset Father Problem (finding) diabetes melli tus in first degree relative Problem (finding) Family history of cance r of colon 60 Father Problem (finding) cancer of colon 58 Immunizations Vaccine Date Status Comments Fluzone Quad, preservative free, split virus, 0.5mL dosage administered Source: New Immuniza tion Record Moderna COVID19 Vaccine, 0.5 mL per dose, 2 doses, administered 28 days apart administered Source: Other Provider Moderna COVID19 Vaccine, 0.5 mL per dose, 2 doses, administered 28 days apart administered Source: Other Provider Fluzone Quad, preservative free, split virus, 0.5mL dosage administered Source: New Immuniza tion Record SHINGRIX (Zoster vaccine recombinant, adjuvanted) administered Source: New Imm unization Record Fluzone Quad, preservative free, split virus, 0.5mL dosage administered Source: New Immuniza tion Record SHINGRIX (Zoster vaccine recombinant, adjuvanted) administered Source: New Imm unization Record Tdap administered Source: New Imm unization Record SHINGRIX (Zoster vaccine recombinant, adjuvanted) pending Source: New Imm unization Record Payers Payer name Insurance type Covered democrat ID Authoriza tion(s) [employer] OPEN ACCESS CI [id number] [employer] OPEN ACCESS CI [id number] [employer] OPEN ACCESS CI [id number] [employer] OPEN ACCESS CI [id number] [employer] OPEN ACCESS CI [id number] [employer]NA OPEN ACCESS CI [id number] C[employer] OPEN ACCESS CI [id number] [employer] OPEN ACCESS CI [id number] Social History Type Description Quantity Date Captured Comments Alcohol Use Details Unknown Caffeine Use Details Unknown Tobacco Use Status Smoking Status No Information Sex Female Chief Complaint And Reason For Visit No Information Reason For Referral Reason For Referral No Information Plan Of Treatment Date Type Action Status Referral Referred To: [address] [place], [place], [id number] Ordered: CT, Thorax, Low Dose, Lung CA Screening, W/O Contrast Appointment date/timeframe: 11/13/2021 ordered Unknown Immunization SHINGRIX (Zoster vaccine rec ombinant, adjuvanted) ordered History Of Present Illness Encounter Date Complaint History Of Prese nt Illness hypothyroidism pt has hx of hyp othyroidism. the pt is taking synthroid. no issues on this med. the pt is taking this daily. no fatigue or edema physical exam pt is here for a pe. the pt notes she feels well. no complaints. the pt is active. the pt does not drink much alcohol but does smoke. the pt notes that she is not having sob or wheezing. the pt notes that she is taking meds as prescribed. overall pt notes health is very good Chronic Conditions *See Chronic Conditions HPI preventive exam Her menses is ab sent. Negative for: breast discharge, breast lump(s) and breast pain. Positive for: breast self exam.Postmenopausal: Age: 42, Type: natural. Menopausal symptoms negative for: hot flashes, insomnia and vaginal dryness. Pertinent negatives include anxiety, depression, dyspareunia, sexual dysfunction, urinary incontinence, urinary urgency and vaginal itching. Diet healthy. She does not take calcium. She does not take Vitamin D. She does not take Folic acid.The patient states her exercise level is moderate and frequency is occasional. The patient does use tobacco. She has been exposed to passive smoke. She does drink alcohol. Preventive exam Her menses is ab sent. Negative for: breast discharge, breast lump(s), breast pain and breast self exam.Postmenopausal: Age: 42, Type: natural. Menopausal symptoms negative for: insomnia, night sweats and vaginal dryness. Menopausal symptoms positive for: hot flashes. There are no associated symptoms. Diet healthy. She does not take calcium. She does not take Vitamin D. She does not take multivitamins.The patient states her exercise level is moderate and frequency is occasional. She has been exposed to passive smoke. She does drink alcohol. Additional information: She has had hot flashes all of her life, but worse after menopause. Awakes her at night. Continues to smoke but has considered quitting.. Functional Status Date Functional Assessmen t No Information Instructions Date Instruction Additional Infor rohit we will check tsh. 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 Continue levothyroxine. Related to Hypothyroidism, unspecified Repeat screening colonoscopy. Re lated to Encounter for screening for malignant neoplasm of colon Medication management Trial black cohosh Related to Ho t flashes Overall, doing well. Preventative labs include CMP, CBC, fasting lipids and TSH.Mammogram later this fall. Up to date on WWE and Pap.Consider Shingrix vaccine.Follow up yearly Related to Annual physical exam Repeat colonoscopy in 2020. Rela satya to Family hx of colon cancer Medication management Assessments Type Assessment Date No Information Patient Care Teams Name Effective Dates (start - stop) Status Members No Information
--- OUTSIDE RECORDS SUMMARY | 2025-04-24 09:07 | XMS_ITS | Clinical Summary ---
Author Organization [facility] [place] [address] [facility] lt Address [address] [place] [address] Care Team Providers Care Marine Diesel Technician Name Role Phone Rashid Medina MD Primary Care Provider [phone] Allergies Active Allergy Reactions Criticality Noted Date Comments Amoxicillin Hives Medium Medications levothyroxine sodium (TIROSINT) 75 mcg capsule Take 75 mcg by mouth early childhood education coordinator before breakfast Active Active Problems Problem Noted Date Diagnosed Date Hx of colonic polyps 09/20/2020 Overview (09/20/2020): Added automatically from request for surgery [id number] Family hx of colon cancer 09/20/2020 Overview (09/20/2020): Added automatically from request for surgery [id number] Pain of finger 08/22/2016 Overview (02/26/2017): Finger pain Current smoker 08/22/2016 Overview (02/26/2017): Current smoker Fibromyalgia 04/24/2011 Surgical History Surgery Date Site/Laterality Comments OOPHORECTOMY Right removed right ovary COLONOSCOPY 11/23/2016 - 11/22/2017 [facility] Medical History Medical History Date Comments Hx Other Medical Fracture left m iddle finger 9-1-16.; Comments: JROSEANN 08/25/2016 - Smoking Hypothyroidism Colon polyp Family History Medical History Relation Name Comments Other Other Family history of early heart attack before age 60, diabetes, hypertension and cancer.; Colon cancer Paternal Grandmother Colon polyps Paternal Grandmother Relation Name Status Comments Other Paternal Grandmother Social History Tobacco Use Types Packs/Day Years Used Date Smoking Tobacco: Every Day Cigarettes Tobacco Cessation:Ready to Q uit: Not Asked; Counseling Given: Not Answered Comments No Sex and Gender Information Value Date Recorded Sex Assigned at Not on file Legal Sex Female 8:39 PM PLANT INSPECTOR Gender Identity Not on file Sexual Orientation Not on file Obstetrics History Para Term AB IAB SAB Ectopic Multiple Livin g Live Births 5 1 1 Date Outcome GA Total Labor Labor/2nd/3rd Weight Sex Type Anes PTL Ayla A1 A5 Name Clin Term Last Filed Vital Signs Vital Sign Reading Time Taken Comments Blood Pressure 142/74 10/14/2022 4:15 PM PLANT INSPECTOR Pulse 63 10/14/2022 4:15 PM PLANT INSPECTOR Temperature 37 C (98.6 F) 10/14/2022 4:15 PM PLANT INSPECTOR Respiratory Rate 16 10/14/2022 4:15 PM PLANT INSPECTOR Oxygen Saturation 97% 10/14/2022 4:15 PM PLANT INSPECTOR Inhaled Oxygen Concentration - - Weight 66.7 kg (147 lb) 10/14/2022 4:15 PM PLANT INSPECTOR Height 167.6 cm (5' 6) 10/14/2022 4:15 PM PLANT INSPECTOR Body Mass Index 23.73 10/14/2022 4:15 PM PLANT INSPECTOR Plan of Treatment Health Maintenance Due Date Last Done Comments Cervical Cancer Screening 1965 Depression Screening 1965 Hepatitis C Screening 1965 DTaP/Tdap/Td Vaccine (1 - Tdap) 1976 Hepatitis B Screening 1983 Regular Well Visit/Exam 18-64 1983 Pneumococcal vaccine <65 (1 of 2 - PCV) 1984 Zoster Vaccine (2 of 2) 06/08/2019 04/13/2019 Breast Cancer Screening-Mammogram 11/20/2021 11/20/2020, 11/14/2019, 03/11/2018 Influenza Vaccine (Season Ended) 2025 11/01/20 18 Colon Cancer Screening-Colonoscopy 09/27/20302019 Colon Cancer Screening-CT Colonography Discontinued 09/27/2020 Colon Cancer Screening-DNA Stool Discontinued 11/05/20 20 Colon Cancer Screening-FIT Discontinued 09/27/2020 Colon Cancer Screening-Sigmoidoscopy Discontinued 03/2020 Procedures Procedure Name Priority Date/Time Associated Diagnosis Comments SCREENING MAMMOGRAM BILATERAL W DAVID Schedule Routine, Read Routine (OP Routine) 11/20/2020 4:18 PM PLANT INSPECTOR Encounter for screening mammogram for malignant neoplasm of breast COLONOSCOPY 09/27/2020 11:07 AM PLANT INSPECTOR from Last 3 Months or Most Recently Relevant to Health Maintenance Results * (ABNORMAL) Screening Mammogram Bilateral W David (11/20/2020 4:18 PM PLANT INSPECTOR) Anatomical Region Laterality Modality Breast Bilateral Mammography 11/21/2020 8:54 AM PLANT INSPECTOR Impressions 11/21/2020 9:02 AM PLANT INSPECTOR 1. Focal asymmetry in the left breast at the 9-10 o'clock position, anterior depth. Further evaluation with diagnostic left mammography and possible diagnostic left breast ultrasound is recommended. 2. No mammographic evidence of malignancy in the right breast. Routine screening mammography of the right breast is recommended in one year. BI-RADS: 0 - Additional imaging evaluation is necessary. Electronically signed by: Vito Holguin M.D. Narrative 11/21/2020 9:02 AM PLANT INSPECTOR EXAMINATION: SCREENING MAMMOGRAM BILATERAL W DAVID ORDERING HEALTHCARE PROVIDER: SELF SCREENING MAMMOGRAM HISTORY: Routine screening mammography. COMPARISON: 11/14/2019, 03/11/2018. TECHNIQUE: CC and MLO views of the bilateral breasts were obtained with digital technique using breast tomosynthesis with C view. Computer aided detection was utilized. FINDINGS: DENSITY: The tissue of the bilateral breasts is heterogeneously dense, which may obscure small masses. BREASTS: There are stable benign bilateral breast calcifications. There is a low-density focal asymmetry at the 9-10 o'clock position, anterior depth in the left breast, most conspicuous on the CC view (CC slice 34). There are no other suspicious findings in either breast. us Self Screening Mammogram IMG MAMMO PROCEDURES Fi nal Result * COLONOSCOPY (09/27/2020 11:07 AM PLANT INSPECTOR) Anatomical Region Laterality Modality Other Narrative Procedure Note López Lema MD - 09/27/2020 11:07 AM CST [facility] Patient Name: Irene Hagan Procedure Date: 09/27/2020 11:07 AM Date of : 1965 Admit Type: Outpatient Age: 54 Gender: Female Attending MD: López Lema M.D. Room: [facility] ENDOSCOPY ROOM 2 Note Status: Finalized Patient Profile: Refer to note in patient chart for documentation of history and physical. Procedure: Colonoscopy Indications: Last colonoscopy: 2016 Referring MD: Rashid Medina MD Providers: López Lema M.D. Impression: - Hemorrhoids found on perianal exam. - One 8 mm polyp in the transverse colon, removedwith a hot biopsy forceps. Resected and retrieved. - One 5 mm polyp in the sigmoid colon, removed witha hot snare. Resected and retrieved. Recommendation: - Discharge patient to home. - Resume previous diet. - Continue present medications. - Await pathology results. - Repeat colonoscopy in 5 years for surveillance. - Return to primary care physician as previously scheduled. Medicines: Propofol per Anesthesia Complications: No immediate complications. Estimated Blood Loss: Estimated blood loss: none. Procedure: Pre-Anesthesia Assessment: - This assessment was completed [Time of Assessment] prior to the administration of sedation. The benefits, risks and alternatives of theprocedure and sedation were discussed and informed consent was obtained. All questions were answered. Please referto the signed informed consent document in the medical record. The bowel preparation used was Miralax. The bowel preparation used was bisacodyl tablets. Bowel prep was administered using a single dose. The scope was passed under direct vision. The Colonoscope [id number] was introduced through the anusand advanced to the the cecum, identified by appendiceal orifice and ileocecal valve. The colonoscopy was performed without difficulty. The patient toleratedthe procedure well. The quality of the bowel preparation was good. Findings: Hemorrhoids were found on perianal exam. A 8 mm polyp was found in the transverse colon. The polyp wassessile. The polyp was removed with a hot biopsy forceps. Resection andretrieval were complete. Verification of patient identification for thespecimen was done by the physician and nurse using the patient's name andbirth date. Estimated blood loss was minimal. A 5 mm polyp was found in the sigmoid colon. The polyp was sessile.The polyp was removed with a hot snare. Resection and retrieval were complete. Verification of patient identification for the specimen was done by the physician and nurse using the patient's name and birthdate. Estimated blood loss was minimal. The exam was otherwise normal throughout the examined colon. Electronically signed by López Lema M.D. López Lema M.D. 09/27/2020 12:25:03 PM Number of Addenda: 0 Note Initiated On: 09/27/2020 11:07 AM Procedure Code(s): --- Professional --- 88896, Colonoscopy, flexible; with removal of tumor(s), polyp(s), or other lesion(s) by snare technique 40539, 59, Colonoscopy, flexible; with removal of tumor(s), polyp(s),or other lesion(s) by hot biopsy forceps Diagnosis Code(s): --- Professional --- D12.5, Benign neoplasm of sigmoid colon D12.3, Benign neoplasm of transverse colon (hepatic flexure orsplenic flexure) K64.9, Unspecified hemorrhoids CPT copyright 2017 [employer]. All rights reserved. The codes documented in this report are preliminary and upon printer slotter feeder reviewmay be revised to meet current compliance requirements. Recognized by the [place] [employer] for promoting quality in endoscopy López Lema MD ENDOSCOPY PROCEDURES Final Re sult from Last 3 Months or Most Recently Relevant to Health [place] [address] [employer] OPEN ACCESS [email or web address] OPEN ACCESS [facility] OPEN ACCESS Advance Directives For more information, please contact: [phone] * Full Code (Latest Code Status on File) Date Activated Date Inactivated Comments 09/27/2020 11:20 AM 09/27/2020 5:29 PM Care Teams Marine Diesel Technician Relationship Specialty Start Date End Date Rashid Medina MD [address] [place] [address] PCP - General 08/22/16
--- OUTSIDE RECORDS SUMMARY | 2025-04-24 09:07 | XMS_ITS | Referral Summary ---
Author Organization [facility] [address] [facility] lto Address [address] [place] [address] Care Team Providers Care Bender Helper Name Role Phone Rashid Medina MD Primary Care Provider [phone] Allergies Active Allergy Reactions Criticality Noted Date Comments Amoxicillin Hives Medium Medications levothyroxine sodium (TIROSINT) 75 mcg capsule Take 75 mcg by mouth thread dresser before breakfast Active Active Problems Problem Noted Date Diagnosed Date Hx of colonic polyps 09/20/2020 Overview (09/20/2020): Added automatically from request for surgery [id number] Family hx of colon cancer 09/20/2020 Overview (09/20/2020): Added automatically from request for surgery [id number] Pain of finger 08/22/2016 Overview (02/26/2017): Finger pain Current smoker 08/22/2016 Overview (02/26/2017): Current smoker Fibromyalgia 04/24/2011 Social History Tobacco Use Types Packs/Day Years Used Date Smoking Tobacco: Every Day Cigarettes Tobacco Cessation:Ready to Q uit: Not Asked; Counseling Given: Not Answered Comments No Sex and Gender Information Value Date Recorded Sex Assigned at Not on file Legal Sex Female 8:39 PM DIRECTOR OF MARKETING COMMUNICATIONS Gender Identity Not on file Sexual Orientation Not on file Last Filed Vital Signs Vital Sign Reading Time Taken Comments Blood Pressure 142/74 10/14/2022 4:15 PM DIRECTOR OF MARKETING COMMUNICATIONS Pulse 63 10/14/2022 4:15 PM DIRECTOR OF MARKETING COMMUNICATIONS Temperature 37 C (98.6 F) 10/14/2022 4:15 PM DIRECTOR OF MARKETING COMMUNICATIONS Respiratory Rate 16 10/14/2022 4:15 PM DIRECTOR OF MARKETING COMMUNICATIONS Oxygen Saturation 97% 10/14/2022 4:15 PM DIRECTOR OF MARKETING COMMUNICATIONS Inhaled Oxygen Concentration - - Weight 66.7 kg (147 lb) 10/14/2022 4:15 PM DIRECTOR OF MARKETING COMMUNICATIONS Height 167.6 cm (5' 6) 10/14/2022 4:15 PM DIRECTOR OF MARKETING COMMUNICATIONS Body Mass Index 23.73 10/14/2022 4:15 PM DIRECTOR OF MARKETING COMMUNICATIONS Plan of Treatment Not on file Procedures Procedure Name Priority Date/Time Associated Diagnosis Comments SCREENING MAMMOGRAM BILATERAL W DAVID Schedule Routine, Read Routine (OP Routine) 11/20/2020 4:18 PM DIRECTOR OF MARKETING COMMUNICATIONS Encounter for screening mammogram for malignant neoplasm of breast COLONOSCOPY 09/27/2020 11:07 AM DIRECTOR OF MARKETING COMMUNICATIONS from Last 3 Months or Most Recently Relevant to Health Maintenance Results * (ABNORMAL) Screening Mammogram Bilateral W David (11/20/2020 4:18 PM DIRECTOR OF MARKETING COMMUNICATIONS) Anatomical Region Laterality Modality Breast Bilateral Mammography 11/21/2020 8:54 AM DIRECTOR OF MARKETING COMMUNICATIONS Impressions 11/21/2020 9:02 AM DIRECTOR OF MARKETING COMMUNICATIONS 1. Focal asymmetry in the left breast [...] Vito Holguin M.D. Narrative 11/21/2020 9:02 AM DIRECTOR OF MARKETING COMMUNICATIONS EXAMINATION: SCREENING MAMMOGRAM BILATERAL W DAVID ORDERING [...] nal Result * COLONOSCOPY (09/27/2020 11:07 AM DIRECTOR OF MARKETING COMMUNICATIONS) Anatomical Region Laterality Modality Other Narrative Procedure Note López Lema MD - 09/27/2020 11:07 AM CST [facility] Patient Name: Irene Hagan Procedure Date: 09/27/2020 11:07 AM Date of : 1965 Admit Type: Outpatient Age: 54 Gender: Female Attending MD: López Lema M.D. Room: [facility] ENDOSCOPY ROOM 2 Note Status: Finalized Patient [...] was passed under direct vision. The Colonoscope [id number] was introduced through the anusand advanced to [...] 11:07 AM Procedure Code(s): --- Professional --- 15236, Colonoscopy, flexible; with removal of tumor(s), polyp(s), or other lesion(s) by snare technique 39704, 59, Colonoscopy, flexible; with removal of tumor(s), polyp(s),or other lesion(s) by hot biopsy forceps Diagnosis Code(s): --- Professional --- D12.5, Benign neoplasm of sigmoid colon D12.3, Benign neoplasm of transverse colon (hepatic flexure orsplenic flexure) K64.9, Unspecified hemorrhoids CPT copyright 2017 [employer]. All rights reserved. The codes documented in this report are preliminary and upon hims coder reviewmay be revised to meet current compliance requirements. Recognized by the [employer] for promoting quality in endoscopy López Lema MD ENDOSCOPY PROCEDURES Final Re sult from Last 3 Months or Most Recently Relevant to Health Maintenance Insurance [employer] OPEN ACCESS [employer] [place] [address] [facility] OPEN ACCESS Advance Directives For more information, please contact: [phone] * Full Code (Latest Code Status on File) Date Activated Date Inactivated Comments 09/27/2020 11:20 AM 09/27/2020 5:29 PM Care Teams Bender Helper Relationship Specialty Start Date End Date Rashid Medina MD [address] [place] [address] PCP - General 08/22/16
--- OUTSIDE RECORDS SUMMARY | 2025-04-24 09:07 | XMS_ITS | Clinical Summary ---
Author Organization [facility] Address [address] [place] [address] Phone Care Team Providers Care Cardiac Nurse Name Role Phone Rashid Medina MD Primary Care Provider [phone] Allergies Active Allergy Reactions Criticality Noted Date Comments Amoxicillin Rash 01/21/2019 Medications HYDROcodone-she taminophen (NORCO) 7.5-325 mg Tablet Take 1 Tablet by mouth every 4 hours as needed for moderate pain. Max Daily Amount: 6 Tablets 30 Tablet 01/26/2019 12:42 PM BRIDGE/STRUCTURE INSPECTION TEAM LEADER 01/26/2019 Active calcium as carbonate (OS-JASKARAN) 1,250 mg (500 mg elemental) tablet Take 2 Tablets by mouth 3 times daily for two days starting tomorrow 01/27, then Take one tablet by mouth starting on 01/29 three times per day until discontinued. . 30 Tablet 01/26/2019 12:42 PM BRIDGE/STRUCTURE INSPECTION TEAM LEADER 01/26/2019 Active calcitRIOL (ROCALTROL) 0.25 mcg capsule Take 1 Capsule (0.25 mcg) by mouth daily for two weeks. Starting 01/26, ending 02/09. 14 Capsule 01/26/2019 12:42 PM BRIDGE/STRUCTURE INSPECTION TEAM LEADER 01/26/2019 Active Active Problems Problem Noted Date [...] Comments Blood Pressure 116/71 01/26/2019 9:00 AM BRIDGE/STRUCTURE INSPECTION TEAM LEADER Pulse 50 01/26/2019 9:00 AM BRIDGE/STRUCTURE INSPECTION TEAM LEADER Temperature 36.6 C (97.8 F) 01/26/2019 9:00 AM BRIDGE/STRUCTURE INSPECTION TEAM LEADER Respiratory Rate 16 01/26/2019 9:00 AM BRIDGE/STRUCTURE INSPECTION TEAM LEADER Oxygen Saturation 99% 01/26/2019 9:00 AM BRIDGE/STRUCTURE INSPECTION TEAM LEADER Inhaled Oxygen Concentration - - Weight 80.1 kg (176 lb 8 oz) 01/26/2019 5:38 AM BRIDGE/STRUCTURE INSPECTION TEAM LEADER Height 167.6 cm (5' 6) 01/25/2019 6:52 AM BRIDGE/STRUCTURE INSPECTION TEAM LEADER Body Mass Index 28.49 01/25/2019 6:52 AM BRIDGE/STRUCTURE INSPECTION TEAM LEADER Plan of Treatment Health Maintenance Due Date Last Done Comments DTAP/TDAP/TD VACCINES (1 - Tdap) 1984 HEPATITIS B VACCINES (1 of 3 - 19+ 3-dose series) 11/23 HPV/Cotest (21-29) 1986 CERVICAL CANCER SCREENING 1995 HPV/Cotest (30-65) 1995 PAP SMEAR 1995 BREAST CANCER SCREENING 2005 COLORECTAL SCREENING 2010 Colorectal Cancer Screening 2010 FIT-DNA Q 3 years 2010 FIT/FOBT Q 1 year 2010 Flex Sig/CT Colonography Q 5 years 2010 ZOSTER VACCINE (1 of 2) 2015 INFLUENZA VACCINE (#1) [address] [place], [place] [id number] [place], [place] [address] [place] [address] [employer] Commercial Advance Directives For more information, please contact: [phone] * Full Code (Latest Code Status on File) Date Activated Date Inactivated Comments 01/25/2019 12:54 PM 01/26/2019 2:52 PM Care Teams Cardiac Nurse Relationship Specialty Start Date End Date Rashid Medina MD PCP - General Internal Medicine 11/19/18
[2025-04-24 09:20] LABS: Hematocrit 46.2 % (35.0-49.0); Hemoglobin 14.9 g/dL (12.0-15.0); Mean Corpuscular HGB Conc 32.3 g/dL (32-36); Mean Corpuscular Hemoglobin 33.1 pg (27.0-31.0); Mean Corpuscular Volume 102.7 fL (78.0-102.0); Platelet Count Result 356 K/mm3 (150-420); Red Cell Distribution Width 12.4 % (11.6-14.4); White Blood Count 7.6 K/mm3 (4.8-10.8)
== END 2025-04-24 08:53 | disposition home or self-care (01) ==
LOC: CHSIMG 08:54
PROVIDERS: PCP Nurse Practitioner Adult Health; Visit Provider Surgery
DX: R79.89 Other specified abnormal findings of blood chemistry (principal); E03.9 Hypothyroidism, unspecified; R92.8 Other abnormal and inconclusive findings on diagnostic imaging of breast; R92.1 Mammographic calcification found on diagnostic imaging of breast
CPT/HCPCS: 36415; 77061; 77065; 84443; 85027; G0279

== ENCOUNTER 2025-08-16 09:39 | Outpatient (CLI) | payer OTHER, SELFPAY ==
--- NOTE | ~2025-08-16 | XR_ITS ---
Examination: XR chest 2V Clinical History: cough x 1 month Comparison: None Technique: PA and Lateral Findings: Heart size upper limit of normal. Lungs clear. No acute bony abnormality. IMPRESSION: 1. No acute cardiopulmonary findings. Reviewed, dictated and finalized at location R.
--- OUTSIDE RECORDS SUMMARY | 2025-08-16 10:21 | XMS_ITS | Clinical Summary ---
Author Organization [facility] Address [address] [place] [address] Phone Care Team Providers Care Waffle Machine Operator Name Role Phone Rashid Medina MD Primary Care Provider [phone] Allergies Active Allergy Reactions Criticality Noted Date Comments Amoxicillin Rash 01/21/2019 Medications HYDROcodone-she taminophen (NORCO) 7.5-325 mg Tablet Take 1 Tablet by mouth every 4 hours as needed for moderate pain. Max Daily Amount: 6 Tablets 30 Tablet 01/26/2019 12:42 PM HOOP RIVETER 01/26/2019 Active calcium as carbonate (OS-JASKARAN) 1,250 mg (500 mg elemental) tablet Take 2 Tablets by mouth 3 times daily for two days starting tomorrow 01/27, then Take one tablet by mouth starting on 01/29 three times per day until discontinued. . 30 Tablet 01/26/2019 12:42 PM HOOP RIVETER 01/26/2019 Active calcitRIOL (ROCALTROL) 0.25 mcg capsule Take 1 Capsule (0.25 mcg) by mouth daily for two weeks. Starting 01/26, ending 02/09. 14 Capsule 01/26/2019 12:42 PM HOOP RIVETER 01/26/2019 Active Active Problems Problem Noted Date [...] Comments Blood Pressure 116/71 01/26/2019 9:00 AM HOOP RIVETER Pulse 50 01/26/2019 9:00 AM HOOP RIVETER Temperature 36.6 C (97.8 F) 01/26/2019 9:00 AM HOOP RIVETER Respiratory Rate 16 01/26/2019 9:00 AM HOOP RIVETER Oxygen Saturation 99% 01/26/2019 9:00 AM HOOP RIVETER Inhaled Oxygen Concentration - - Weight 80.1 kg (176 lb 8 oz) 01/26/2019 5:38 AM HOOP RIVETER Height 167.6 cm (5' 6) 01/25/2019 6:52 AM HOOP RIVETER Body Mass Index 28.49 01/25/2019 6:52 AM HOOP RIVETER Plan of Treatment Health Maintenance Due Date [...] (1 of 2) 2015 INFLUENZA VACCINE (#1) [address] [place], [place] [id number] [place], [place] [address] [address] [place] [address] [employer] Commercial Advance Directives For more information, please contact: [phone] * Full Code (Latest Code Status on File) Date Activated Date Inactivated Comments 01/25/2019 12:54 PM 01/26/2019 2:52 PM Care Teams Waffle Machine Operator Relationship Specialty Start Date End Date Rashid Medina MD PCP - General Internal Medicine 11/19/18
--- OUTSIDE RECORDS SUMMARY | 2025-08-16 10:21 | XMS_ITS | Clinical Summary ---
Author Organization [facility] [address] [facility] lt Address [address] [place] [address] Care Team Providers Care Card Brusher Name Role Phone Rashid Medina MD Primary Care Provider [phone] Allergies Active Allergy Reactions Criticality Noted Date Comments Amoxicillin Hives Medium Medications levothyroxine sodium (TIROSINT) 75 mcg capsule Take 75 mcg by mouth scientific process operator before breakfast Active Active Problems Problem Noted Date Diagnosed Date Hx of colonic polyps 09/20/2020 Overview (09/20/2020): Added automatically from request for surgery [id number] Family hx of colon cancer 09/20/2020 Overview (09/20/2020): Added automatically from request for surgery [id number] Pain of finger 08/22/2016 Overview (02/26/2017): Finger pain Current smoker 08/22/2016 Overview (02/26/2017): Current smoker Fibromyalgia 04/24/2011 Surgical History Surgery Date Site/Laterality Comments OOPHORECTOMY Right removed right ovary COLONOSCOPY 11/23/2016 - 11/22/2017 [facility] Medical History Medical History Date [...] on file Legal Sex Female 8:39 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 Gender Identity Not on file Sexual Orientation Not on file Obstetrics History Para Term AB IAB SAB Ectopic Multiple Livin g Live Births 5 1 1 Date Outcome GA Total Labor Labor/2nd/3rd Weight Sex Type Anes PTL Ayla A1 A5 Name Clin Term Last Filed Vital Signs Vital Sign Reading Time Taken Comments Blood Pressure 142/74 10/14/2022 4:15 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 Pulse 63 10/14/2022 4:15 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 Temperature 37 C (98.6 F) 10/14/2022 4:15 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 Respiratory Rate 16 10/14/2022 4:15 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 Oxygen Saturation 97% 10/14/2022 4:15 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 Inhaled Oxygen Concentration - - Weight 66.7 kg (147 lb) 10/14/2022 4:15 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 Height 167.6 cm (5' 6) 10/14/2022 4:15 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 Body Mass Index 23.73 10/14/2022 4:15 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 Plan of Treatment Health Maintenance Due Date Last Done Comments Cervical Cancer Screening 1965 Depression Screening 1965 Hepatitis C Screening 1965 DTaP/Tdap/Td Vaccine (1 - Tdap) 1976 Hepatitis B Screening 1983 Regular Well Visit/Exam 18-64 1983 Pneumococcal vaccine <65 (1 of 2 - PCV) 1984 Zoster Vaccine (2 of 2) 06/08/2019 04/13/2019 Breast Cancer Screening-Mammogram 11/20/2021 11/20/2020, 11/14/2019, 03/11/2018 Influenza Vaccine (#1) 2025 11/01/2018 Colon Cancer Screening-Colonoscopy 09/27/20302019 Colon Cancer Screening-CT Colonography Discontinued 09/27/2020 Colon Cancer Screening-DNA Stool Discontinued 09/27/20 20 Colon Cancer Screening-FIT Discontinued 09/27/2020 Colon Cancer Screening-Sigmoidoscopy Discontinued 03/2020 Procedures Procedure Name Priority Date/Time Associated Diagnosis Comments SCREENING MAMMOGRAM BILATERAL W DAVID Schedule Routine, Read Routine (OP Routine) 11/20/2020 4:18 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 Encounter for screening mammogram for malignant neoplasm of breast COLONOSCOPY 09/27/2020 11:07 AM THERAPEUTIC RADIOLOGIST from Last 3 Months or Most Recently Relevant to Health Maintenance Results * (ABNORMAL) Screening Mammogram Bilateral W David (11/20/2020 4:18 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) Anatomical Region Laterality Modality Breast Bilateral Mammography 11/21/2020 8:5 4 AM THERAPEUTIC RADIOLOGIST Impressions 11/21/2020 9:02 AM THERAPEUTIC RADIOLOGIST 1. Focal asymmetry in the left breast [...] Vito Holguin M.D. Narrative 11/21/2020 9:02 AM THERAPEUTIC RADIOLOGIST EXAMINATION: SCREENING MAMMOGRAM BILATERAL W DAVID ORDERING [...] nal Result * COLONOSCOPY (09/27/2020 11:07 AM THERAPEUTIC RADIOLOGIST) Anatomical Region Laterality Modality Other Narrative Procedure Note López Lema MD - 09/27/2020 11:07 AM CST [facility] Patient Name: Irene Hagan Procedure Date: 09/27/2020 11:07 AM Date of : 1965 Admit Type: Outpatient Age: 54 Gender: Female Attending MD: López Lema M.D. Room: [facility] ENDOSCOPY ROOM 2 Note Status: Finalized Patient [...] was passed under direct vision. The Colonoscope [id number] was introduced through the anusand advanced to [...] 11:07 AM Procedure Code(s): --- Professional --- 15240, Colonoscopy, flexible; with removal of tumor(s), polyp(s), or other lesion(s) by snare technique 58144, 59, Colonoscopy, flexible; with removal of tumor(s), polyp(s),or other lesion(s) by hot biopsy forceps Diagnosis Code(s): --- Professional --- D12.5, Benign neoplasm of sigmoid colon D12.3, Benign neoplasm of transverse colon (hepatic flexure orsplenic flexure) K64.9, Unspecified hemorrhoids CPT copyright 2017 [employer]. All rights reserved. The codes documented in this report are preliminary and upon assisted living care manager reviewmay be revised to meet current compliance requirements. Recognized by the [employer] for promoting quality in endoscopy López Lema MD ENDOSCOPY PROCEDURES Final Re sult from Last 3 Months or Most Recently Relevant to Health [place] [address] [employer] OPEN ACCESS [employer] OPEN [facility]ESS [facility] Advance Directives For more information, please contact: [phone] * Full Code (Latest Code Status on File) Date Activated Date Inactivated Comments 09/27/2020 11:20 AM 09/27/2020 5:29 PM Care Teams Card Brusher Relationship Specialty Start Date End Date Rashid Medina MD [address] [place] [address] PCP - General 08/22/16
--- OUTSIDE RECORDS SUMMARY | 2025-08-16 10:22 | XMS_ITS | Clinical Summary ---
Author Organization [facility] Address [address] [place] [address] Care Team Providers Care Videotape Recording Engineer Name Role Phone Unavailable Primary Care Provider Unavailabl e Source Comments [facility],non-owned Affiliates and Associated Physician Practices is amultiple site organization consisting of ambulatory clinics and hospital sitesin [place], [place], [place] and [place]. This disclosure is being madepursuant to the Care Everywhere program and may not contain all information available regarding this patient. 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 Gender Identity Not on file Sexual Orientation [...] SCREENING 1965 LIPID TESTING 1965 MAMMOGRAM 1965 HIV SCREENING 1980 HEPATITIS C SCREENING 12/05/1983 DTAP/TDAP/TD VACCINES (1 - Tdap) 1984 HEPATITIS B VACCINE (1 of 3 - 19+ 3-dose series) 1984 PAP SMEAR 1986 PNEUMOCOCCAL VACCINE 50+ (1 of 1 - PCV) 2015 ZOSTER VACCINE (1 of 2) 2015 DEPRESSION SCREENING 11/23/2024 COVID-19 VACCINE (1 - 2023-2 5 season) 2025 INFLUENZA VACCINE (#1) 2025 HIB VACCINE Aged Out No longer [...] age to complete this topic Insurance [place] [facility] Address: [facility] [id number] [place] [address] [facility] SELF PAY NO INSURANCE Member Subscriber Plan / Payer (Ef fective for All Dates) Name:Irene Hagan Member ID:Not on file Relation to Subscriber:Not on file Name:IRENE HAGAN Subscriber ID:Not on file (Home) Address: [address] [place], [place] [address] [address] Payer ID:Not on file Group ID:Not on file Type:Self Pay Address: [place], [place]
[2025-08-16 19:00] LABS: Alanine Aminotransferase 17 U/L (6-35); Albumin Level 4.6 g/dL (3.5-5.1); Alkaline Phosphatase 70 U/L (38-126); Anion Gap 4 mmol/L (4-12); Aspartate Amino Transferase 51 U/L (14-36); Bilirubin,Total 0.5 mg/dL (0.2-1.3); Blood Urea Nitrogen 13 mg/dL (7-17); Calcium 9.4 mg/dL (8.4-10.2); Carbon Dioxide 27 mmol/L (22-30); Chloride 106 mmol/L (98-107); Cholesterol 265 mg/dL (0-200); Estimated Glomerular Filt Rate > 60; Glucose 104 mg/dL (65-110); HDL Direct 106 mg/dL; Potassium 5.7 mmol/L (3.4-5.0); Sodium 137 mmol/L (137-145); Total Protein 7.8 g/dL (6.3-8.2); Triglycerides 64 mg/dL (<150)
[2025-08-16 19:52] LABS: Thyroid Stimulating Hormone 0.515 uIU/mL (0.465-4.680)
== END 2025-08-16 09:40 | disposition home or self-care (01) ==
LOC: ANHBWCLAB 09:40
PROVIDERS: PCP Nurse Practitioner Adult Health; Visit Provider Nurse Practitioner Adult Health
DX: Z00.00 Encounter for general adult medical examination without abnormal findings (principal); R05.9 Cough, unspecified
CPT/HCPCS: 36415; 71046; 80053; 80061; 84443

== ENCOUNTER 2025-08-17 12:07 | Outpatient (CLI) | payer OTHER, SELFPAY ==
--- OUTSIDE RECORDS SUMMARY | 2025-08-17 14:37 | XMS_ITS | Clinical Summary ---
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 before breakfast Active Active Problems Problem Noted Date Diagnosed Date Hx of colonic polyps 09/20/2020 Overview (09/20/2020): Added automatically from request for surgery [id number] Family hx of colon cancer 09/20/2020 Overview (09/20/2020): Added automatically from request for surgery [id number] Pain of finger 08/22/2016 Overview (02/26/2017): Finger pain Current smoker 08/22/2016 Overview (02/26/2017): Current smoker Fibromyalgia 04/24/2011 Surgical History Surgery Date Site/Laterality Comments OOPHORECTOMY Right removed right ovary COLONOSCOPY 11/23/2016 - 11/22/2017 [facility] Medical History Medical History Date Comments Hx [...] on file Legal Sex Female 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 Gender Identity Not on file Sexual Orientation Not on file Obstetrics History Para Term AB IAB SAB Ectopic Multiple Livin g Live Births 5 1 1 Date Outcome GA Total Labor Labor/2nd/3rd Weight Sex Type Anes PTL Ayla A1 A5 Name Clin Term Last Filed Vital Signs Vital Sign Reading Time Taken Comments Blood Pressure 142/74 10/14/2022 4:15 PM FOOD SCIENCE TECHNICIAN Pulse 63 10/14/2022 4:15 PM FOOD SCIENCE TECHNICIAN Temperature 37 C (98.6 F) 10/14/2022 4:15 PM FOOD SCIENCE TECHNICIAN Respiratory Rate 16 10/14/2022 4:15 PM FOOD SCIENCE TECHNICIAN Oxygen Saturation 97% 10/14/2022 4:15 PM FOOD SCIENCE TECHNICIAN Inhaled Oxygen Concentration - - Weight 66.7 kg (147 lb) 10/14/2022 4:15 PM FOOD SCIENCE TECHNICIAN Height 167.6 cm (5' 6) 10/14/2022 4:15 PM FOOD SCIENCE TECHNICIAN Body Mass Index 23.73 10/14/2022 4:15 PM FOOD SCIENCE TECHNICIAN Plan of Treatment Health Maintenance Due Date [...] Read Routine (OP Routine) 11/20/2020 4:18 PM FOOD SCIENCE TECHNICIAN Encounter for screening mammogram for malignant neoplasm of breast COLONOSCOPY 09/27/2020 11:07 AM FOOD SCIENCE TECHNICIAN from Last 3 Months or Most Recently Relevant to Health Maintenance Results * (ABNORMAL) Screening Mammogram Bilateral W David (11/20/2020 4:18 PM FOOD SCIENCE TECHNICIAN) Anatomical Region Laterality Modality Breast Bilateral Mammography 11/21/2020 8:5 4 AM FOOD SCIENCE TECHNICIAN Impressions 11/21/2020 9:02 AM FOOD SCIENCE TECHNICIAN 1. Focal asymmetry in the left breast [...] Vito Holguin M.D. Narrative 11/21/2020 9:02 AM FOOD SCIENCE TECHNICIAN EXAMINATION: SCREENING MAMMOGRAM BILATERAL W DAVID ORDERING [...] nal Result * COLONOSCOPY (09/27/2020 11:07 AM FOOD SCIENCE TECHNICIAN) Anatomical Region Laterality Modality Other Narrative Procedure Note López Lema MD - 09/27/2020 11:07 AM CST [facility] Patient Name: Irene Hagan Procedure Date: 09/27/2020 11:07 AM Date of : 1965 Admit Type: Outpatient Age: 54 Gender: Female Attending MD: López Lema M.D. Room: [facility] ENDOSCOPY ROOM 2 Note Status: Finalized Patient [...] was passed under direct vision. The Colonoscope [id number] was introduced through the anusand advanced to [...] 11:07 AM Procedure Code(s): --- Professional --- 37879, Colonoscopy, flexible; with removal of tumor(s), polyp(s), or other lesion(s) by snare technique 18009, 59, Colonoscopy, flexible; with removal of tumor(s), polyp(s),or other lesion(s) by hot biopsy forceps Diagnosis Code(s): --- Professional --- D12.5, Benign neoplasm of sigmoid colon D12.3, Benign neoplasm of transverse colon (hepatic flexure orsplenic flexure) K64.9, Unspecified hemorrhoids CPT copyright 2017 [employer]. All rights reserved. The codes documented in this report are preliminary and upon cook barbecue reviewmay be revised to meet current compliance requirements. Recognized by the [employer] for promoting quality in endoscopy López Lema MD ENDOSCOPY PROCEDURES Final Re sult from Last 3 Months or Most Recently Relevant to Health [place] [address] [employer] OPEN ACCESS [employer] OPEN ACCESS [facility] Advance Directives For more information, please contact: [phone] * Full Code (Latest Code Status on File) Date Activated Date Inactivated Comments 09/27/2020 11:20 AM 09/27/2020 5:29 PM Care Teams Clinical Nurse Leader Relationship Specialty Start Date End Date Rashid Medina MD [address] [place] [address] PCP - General 08/22/16"
--- OUTSIDE RECORDS SUMMARY | 2025-08-17 14:37 | XMS_ITS | Clinical Summary ---
Author Organization [facility] Address [address] [place] [address] Care Team Providers Care E Mail System Administrator Name Role Phone Unavailable Primary Care Provider Unavailabl e Source Comments [facility],non-owned Affiliates and Associated Physician Practices is amultiple site organization consisting of ambulatory clinics and hospital sitesin [place], [place], [place] and [place]. This disclosure is being madepursuant to the Care Everywhere program and may not contain all information available regarding this patient. 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
--- OUTSIDE RECORDS SUMMARY | 2025-08-17 14:37 | XMS_ITS | Clinical Summary ---
Author Organization [facility] Address [address] [place] [address] Phone Care Team Providers Care Warp Knitter Name Role Phone Rashid Medina MD Primary Care Provider [phone] Allergies Active Allergy Reactions Criticality Noted Date Comments Amoxicillin Rash 01/21/2019 Medications HYDROcodone-she taminophen (NORCO) 7.5-325 mg Tablet Take 1 Tablet by mouth every 4 hours as needed for moderate pain. Max Daily Amount: 6 Tablets 30 Tablet 01/26/2019 12:42 PM HANDBAG FINISHER 01/26/2019 Active calcium as carbonate (OS-JASKARAN) 1,250 mg (500 mg elemental) tablet Take 2 Tablets by mouth 3 times daily for two days starting tomorrow 01/27, then Take one tablet by mouth starting on 01/29 three times per day until discontinued. . 30 Tablet 01/26/2019 12:42 PM HANDBAG FINISHER 01/26/2019 Active calcitRIOL (ROCALTROL) 0.25 mcg capsule Take 1 Capsule (0.25 mcg) by mouth daily for two weeks. Starting 01/26, ending 02/09. 14 Capsule 01/26/2019 12:42 PM HANDBAG FINISHER 01/26/2019 Active Active Problems Problem Noted Date [...] Comments Blood Pressure 116/71 01/26/2019 9:00 AM HANDBAG FINISHER Pulse 50 01/26/2019 9:00 AM HANDBAG FINISHER Temperature 36.6 C (97.8 F) 01/26/2019 9:00 AM HANDBAG FINISHER Respiratory Rate 16 01/26/2019 9:00 AM HANDBAG FINISHER Oxygen Saturation 99% 01/26/2019 9:00 AM HANDBAG FINISHER Inhaled Oxygen Concentration - - Weight 80.1 kg (176 lb 8 oz) 01/26/2019 5:38 AM HANDBAG FINISHER Height 167.6 cm (5' 6) 01/25/2019 6:52 AM HANDBAG FINISHER Body Mass Index 28.49 01/25/2019 6:52 AM HANDBAG FINISHER Plan of Treatment Health Maintenance Due Date [...] 2015 INFLUENZA VACCINE (#1) [address] [place] [id number] [place], [place] [address] [place] [address] [place] [address] [facility] Commercial Advance Directives For more information, please contact: [phone] * Full Code (Latest Code Status on File) Date Activated Date Inactivated Comments 01/25/2019 12:54 PM 01/26/2019 2:52 PM Care Teams Warp Knitter Relationship Specialty Start Date End Date Rashid Medina MD PCP - General Internal Medicine 11/19/18
[2025-08-17 18:37] LABS: Potassium 4.8 mmol/L (3.4-5.0)
== END 2025-08-17 12:08 | disposition home or self-care (01) ==
LOC: ANHBWCLAB 12:08
PROVIDERS: PCP Nurse Practitioner Adult Health; Visit Provider Nurse Practitioner Adult Health
DX: E87.5 Hyperkalemia (principal)
CPT/HCPCS: 36415; 84132